=== PATIENT | male | born 1995 | race Caucasian/White ===

== ENCOUNTER 2019-12-30 01:47 | Emergency (ER) | payer OTHER ==
--- NOTE | 2019-12-30 01:57 | ED Physician Documentation ---
History of Present Illness - Stated complaint Stated Complaint: MHE - Chief complaint Chief Complaint: Neuro - History obtained from History obtained from: Patient - Additonal information Additional information: 24 Y/O AD USN M brought in by [employer] command monalisa he is not acting like himself and is here to be evaluated. the patient reports he had a few beers eariler and then was found by police in [facility] so they took him to [facility]. [facility] personnel then brought him here for evaluation. the patient denies any complaints. reports that he had a few beers and that he might have possibly been given something. he denies any auditory or visual hallucinations. denies any hi/si. denies any history of medical problems. Review of Systems Ten Systems: 10 systems reviewed and negative Constitutional: reports: Reviewed and negative Eyes: reports: Reviewed and negative Ears: reports: Reviewed and negative Nose: reports: Reviewed and negative Throat: reports: Reviewed and negative Cardiac: reports: Reviewed and negative Respiratory: reports: Reviewed and negative GI: reports: Reviewed and negative : reports: Reviewed and negative Skin: reports: Reviewed and negative Musculoskeletal: reports: Reviewed and negative Neurologic: reports: Reviewed and negative Psychiatric: reports: Reviewed and negative Endocrine: reports: Reviewed and negative Immunocompromised: reports: Reviewed and negative PD PAST MEDICAL HISTORY - Present Medications Home Medications: Ambulatory Orders Medication Instructions Recorded Confirmed No Known Home Medications 12/30/19 12/30/19 - Allergies Allergies/Adverse Reactions: Allergies Allergy/AdvReac Type Severity Reaction Status Date / Time No Known Drug Allergies Allergy Verified 12/30/19 02:01 PD ED PE NORMAL - Vitals Vital signs reviewed: Yes - General General: Alert and oriented X 3, No acute distress, Well developed/nourished - HEENT HEENT: Atraumatic, PERRL, EOMI, Ears normal, Moist mucous membranes, Pharynx benign, Dentition benign - Neck Neck: Supple, no meningeal sign, Thyroid normal - Cardiac Cardiac: RRR, No murmur, Strong equal pulses - Respiratory Respiratory: Clear bilaterally - Abdomen Abdomen: Normal bowel sounds, Soft, Non tender, Non distended - Back Back: No CVA TTP, No spinal TTP - Derm Derm: Normal color, Warm and dry, No rash - Extremities Extremities: No deformity, No tenderness to palpate, Normal ROM s pain, No edema, No calf tenderness / cord - Neuro Neuro: Alert and oriented X 3, vmware consultant 2-12 intact, No motor deficit, No sensory deficit, Normal speech - Psych Psych: Normal mood, Normal affect Results - Vitals Vitals: Vital Signs - 24 hr 12/30/19 01:50 Temperature 36.8 C Heart Rate 104 H Respiratory 16 Rate Blood Pressure 142/84 H O2 Saturation 99 Oxygen O2 Source Room air PD MEDICAL DECISION MAKING - ED course Complexity details: considered differential (likely ingested some sort of substance. he has normal vital signs. afebrile. denies any complaints. has medical follow up at [facility] in 4 hours. ) Departure - Departure Disposition: Home, Self Care Clinical Impression: Well adult health check Condition: Stable Instructions: ED Confusion Follow-Up: your, doctor [Other] Comments: Go to medical at [facility] at 7 AM.
[2019-12-30 02:13] VITALS: BP 130/80
== END 2019-12-30 02:13 | disposition home or self-care (01) ==
LOC: ED 01:47
DX: Z03.89 Encounter for observation for other suspected diseases and conditions ruled out (principal)
CPT/HCPCS: 99281